=== PATIENT | male | born 2005 | race Caucasian/White ===

== ENCOUNTER 2025-05-17 12:30 | Emergency (ER) | payer MEDICAID, SELFPAY ==
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
[2025-05-17 12:31] VITALS: BP 116/79; PULSE 77; RESP 18; TEMP 36.1; O2SAT 100
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
[2025-05-17] MEDS: ACETAMINOPHEN 1,000 MG/100 ML BAG 400 MG IVPB (12:56)
[2025-05-17 13:01] LABS: Abs Immature Grans 0.03 10^3/uL (0.0-0.06); HCT 42.7 % (40.0-50.0); HGB 14.0 g/dL (13.5-17.5); Immature Grans % 0.4 %; MCH 30.8 pg (27.0-33.0); MCHC 32.8 % (32.0-36.0); MCV 94 fL (80-95); MPV 9.3 fL (8.0-11.0); Platelet Count 282 10^3/uL (130-400); RBC 4.55 10^6/uL (4.36-5.78); RDW 13.2 % (11.8-14.1); RDW-SD 45.9 fL; WBC 8.40 10^3/uL (4.4-10.8)
[2025-05-17 13:11] LABS: ALT 33 U/L (16-63); AST 15 U/L (15-37); Albumin 4.2 g/dL (3.4-5.0); Alkaline Phosphatase 71 U/L (46-116); Anion Gap 8.7 mmol/L (3-11); BUN 16 mg/dL (7-18); Bilirubin, Total 0.5 mg/dL (0.2-1.0); CO2 30.3 mmol/L (21.0-32.0); Calcium 9.4 mg/dL (8.5-10.1); Chloride 101 mmol/L (98-107); Estimated GFR 128.33 (mL/min/1.73m2); Glucose 98 mg/dL (74-106); Potassium 3.9 mmol/L (3.5-5.1); Sodium 140 mmol/L (136-145); Total Protein 7.6 g/dL (6.4-8.2)
[2025-05-17] MEDS: Omnipaque 350 MG/ML 500 ML BTL-Imaging package IJ (13:50)
[2025-05-17] MEDS: Normal Saline Flush 10 ML SYR IVP (13:52)
[2025-05-17] MEDS: Normal Saline - Diluent 50 ML VIAL IJ (13:52)
[2025-05-17 13:56] VITALS: BP 114/68; PULSE 66; RESP 18; O2SAT 99
[2025-05-17 15:04] VITALS: BP 102/67; PULSE 64; RESP 16; TEMP 37.1; O2SAT 99
== END 2025-05-17 15:05 | disposition home or self-care (01) ==
PROVIDERS: Emergency Provider Emergency Medicine
DX: S16.1XXA Strain of muscle, fascia and tendon at neck level, initial encounter (principal); S09.8XXA Other specified injuries of head, initial encounter; M54.6 Pain in thoracic spine; M54.50 Low back pain, unspecified; V48.5XXA Car driver injured in noncollision transport accident in traffic accident, initial encounter
CPT/HCPCS: 36415; 74177; 80053; 96365; 99285; 70450; 71260; 72125; 85025; 99284; J0131